=== PATIENT | female | born 1970 | race Caucasian/White ===

== ENCOUNTER 2019-05-15 09:29 | Emergency (ER) | payer OTHER ==
[~2019-05-15] VITALS: Ht 167.6 cm; Wt 59.0 kg
[~2019-05-15 09:29] MED LIST: CIPRO500 MG; NITROFURANTOIN100 MG PO; NORCO 5-325 TA1 EACH PO; TRAMADOL 50 MG50 MG PO; VYVANSE50 MG PO
[2019-05-15 09:47] LABS: URINE BLOOD NEGATIVE (Negative); URINE CLARITY CLEAR; URINE COLOR YELLOW; URINE GLUCOSE-RANDOM* NEGATIVE (Negative); URINE KETONES TRACE (Negative); URINE LEUKOCYTES 1+ (Negative); URINE NITRITE NEGATIVE (Negative); URINE PROTEIN (DIPSTICK) NEGATIVE (Negative); URINE SPECIFIC GRAVITY 1.025 (1.005-1.035)
[2019-05-15 09:49] LABS: ICTOTEST (BILI CONFIRMATORY) Negative (Negative); URINE BILIRUBIN NEGATIVE (Negative)
[2019-05-15 09:56] LABS: SQUAMOUS >10 Many /LPF (0-3)
[2019-05-15 09:57] LABS: BACTERIA 1-9 Few /HPF (None Seen); CASTS None Seen /LPF (None Seen); CRYSTALS None Seen /LPF (None Seen); URINE RBC None Seen /HPF (0-2); URINE WBC 6-15 Few /HPF (0-5)
[2019-05-15 10:14] LABS: ABSOLUTE NEUTROPHILS 2.3 thou/uL (1.4-8.2); BASOPHILS 1.1 % (0.0-2.0); EOSINOPHILS 3.6 % (0.0-3.0); HEMATOCRIT 46.8 % (37.0-47.0); HEMOGLOBIN 15.2 gm/dL (12.0-15.0); LYMPHOCYTES 40.6 % (24.0-44.0); MCH 29.3 pg (26.0-34.0); MCHC 32.5 g/dL (28.0-37.0); MCV 90.3 fL (80.0-100.0); MONOCYTES 6.4 % (1.0-8.0); PLATELET COUNT 329 thou/uL (150-400); POLYS 48.3 % (36.0-66.0); RBC 5.18 mil/uL (4.20-5.00); RDW 12.7 % (10.5-14.5); WBC 4.8 thou/uL (4.0-11.0)
[2019-05-15 10:20] LABS: CALCIUM 10.1 mg/dL (8.5-10.1); CREATININE 0.8 mg/dL (0.6-1.0)
[2019-05-15 10:26] LABS: ALBUMIN 4.4 g/dL (3.4-5.0); TOTAL BILIRUBIN 0.4 mg/dL (<0.1-1.0); TOTAL PROTEIN 8.3 g/dL (6.4-8.2)
[2019-05-15 12:53] LABS: URINE BILIRUBIN NEGATIVE (Negative); URINE BLOOD NEGATIVE (Negative); URINE CLARITY CLEAR; URINE COLOR YELLOW; URINE GLUCOSE-RANDOM* NEGATIVE (Negative); URINE KETONES NEGATIVE (Negative); URINE LEUKOCYTES-REFLEX NEGATIVE (Negative); URINE NITRITE-REFLEX NEGATIVE (Negative); URINE PROTEIN (DIPSTICK) NEGATIVE (Negative); URINE SPECIFIC GRAVITY <= 1.005 (1.005-1.035); URINE UROBILINOGEN 0.2 E.U./dl (0.2-1.0)
--- NOTE | 2019-05-15 12:54 | EKG ---
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 : 1970 Requested By: Jitendra Moulton Order Number: [id number] MD: Néstor Ji Measurements Intervals [place] Rate: 80 P: 79 UT: 152 QRS: 110 QRSD: 100 T: 143 QT: 357 QTc: 412 Interpretive Statements Sinus rhythm Probable left atrial enlargement Left posterior fascicular block Borderline repolarization abnormality Compared to ECG 09/08/2014 16:47:39 Electronically Signed On 05-15-2019 12:54:21 CDT by Néstor Ji [email or web address] <ELECTRONICALLY SIGNED> By: Néstor Ji MD 05/15/19 [id number] Néstor Ji MD /VERA
[2019-05-15 14:59] VITALS: BP 128/78
== END 2019-05-15 15:19 | disposition home or self-care (01) ==
LOC: ER 09:29
PROVIDERS: Emergency Medicine
DX: R10.84 Generalized abdominal pain (principal); R11.2 Nausea with vomiting, unspecified; G43.909 Migraine, unspecified, not intractable, without status migrainosus; N80.9 Endometriosis, unspecified; F41.9 Anxiety disorder, unspecified; F90.9 Attention-deficit hyperactivity disorder, unspecified type; Z90.710 Acquired absence of both cervix and uterus; Z88.6 Allergy status to analgesic agent